=== PATIENT | female | born 1975 | race Hispanic/Latino ===

== ENCOUNTER → 2019-01-20 | Outpatient (CLI) | payer MEDICAID | END | disposition home or self-care (01) | LOC: EDBD → SLP 21:08 | PROVIDERS: ATTEND Internal Medicine Critical Care Medicine | DX: G47.30 Sleep apnea, unspecified (principal); I10 Essential (primary) hypertension | CPT/HCPCS: 95810 ==

== ENCOUNTER → 2019-01-28 | Outpatient (CLI) | payer MEDICAID | END | disposition home or self-care (01) | LOC: SLP 21:05 → EDUNIT# 02-26 20:30 → EDBD 02-26 20:30 | PROVIDERS: ATTEND Internal Medicine Critical Care Medicine | DX: G47.30 Sleep apnea, unspecified (principal); R06.83 Snoring; I10 Essential (primary) hypertension | CPT/HCPCS: 95811 ==